=== PATIENT | male | born 1970 | race Two or more races ===

== ENCOUNTER 2020-09-09 12:47 | Outpatient (CLI) | payer OTHER ==
[~2020-09-09 12:47] MED LIST: DOLOGEN CAPLET1 TAB PO; PHENERGAN25 MG PO; PROTONIX40 MG PO
== END 2020-09-09 14:17 | disposition home or self-care (01) ==
LOC: RAD 12:47 → MRI 13:15 → RAD 14:17
PROVIDERS: ATTEND Internal Medicine Rheumatology
DX: M25.761 Osteophyte, right knee (principal); M25.851 Other specified joint disorders, right hip; S83.242A Other tear of medial meniscus, current injury, left knee, initial encounter; M17.0 Bilateral primary osteoarthritis of knee; M54.5 Low back pain; M25.551 Pain in right hip; M25.552 Pain in left hip
CPT/HCPCS: 73721

== ENCOUNTER → 2020-10-10 | Emergency (ER) | payer OTHER ==
[~2020-10-10] VITALS: Ht 165.1 cm; Wt 70.3 kg
[~2020-10-10] MED LIST changes: +AIRBORNE EFFER1 EACH PO; +KETO10TA2 PO
== END | disposition home or self-care (01) ==
LOC: ER 09:50
DX: B34.9 Viral infection, unspecified (principal); E86.0 Dehydration; E87.8 Other disorders of electrolyte and fluid balance, not elsewhere classified; Z03.818 Encounter for observation for suspected exposure to other biological agents ruled out

== ENCOUNTER 2022-03-21 14:01 | Emergency (ER) | payer OTHER ==
[~2022-03-21] VITALS: Ht 165.1 cm; Wt 72.6 kg
== END 2022-03-21 16:02 | disposition home or self-care (01) ==
LOC: ER 14:01
DX: U07.1 COVID-19 (principal); B34.9 Viral infection, unspecified

== ENCOUNTER 2022-09-18 10:19 | Emergency (ER) | payer OTHER ==
[~2022-09-18] VITALS: Ht 165.1 cm; Wt 71.7 kg
== END 2022-09-18 16:00 | disposition home or self-care (01) ==
LOC: ER 10:19
DX: R10.9 Unspecified abdominal pain (principal); I10 Essential (primary) hypertension